=== PATIENT | male | born 2005 | race Two or more races ===

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

== ENCOUNTER 2025-02-02 17:32 | Emergency (ER) | payer MEDICAID ==
[~2025-02-02] VITALS: Ht 170.2 cm; Wt 68.1 kg
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
[2025-02-02 18:35] VITALS: BP 131/83; PULSE 73; RESP 16; TEMP 98.2; O2SAT 96
== END 2025-02-02 18:35 | disposition home or self-care (01) ==
LOC: ER 17:32
DX: S51.812A Laceration without foreign body of left forearm, initial encounter (principal); J45.909 Unspecified asthma, uncomplicated; V29.99XA Rider (driver) (passenger) of other motorcycle injured in unspecified traffic accident, initial encounter; Y93.89 Activity, other specified; Y92.488 Other paved roadways as the place of occurrence of the external cause; Y99.8 Other external cause status
CPT/HCPCS: 12002